=== PATIENT | male | born 1965 | race American Indian/Alaskan Native ===

== ENCOUNTER 2018-05-30 11:03 | Outpatient (CLI) | payer MEDICAID ==
--- NOTE | 2018-05-30 12:25 | XRay Report ---
ROUTINE CHEST, TWO VIEWS: HISTORY: Cough. The trachea, heart, mediastinal contour, lung collins and bony thorax are unremarkable. IMPRESSION: Unremarkable chest x-ray.
== END 2018-05-30 11:04 | disposition home or self-care (01) ==
LOC: XRAY 11:03
PROVIDERS: ATTEND Internal Medicine
DX: R05 Cough (principal); M24.612 Ankylosis, left shoulder
CPT/HCPCS: 71046